=== PATIENT | female | born 1970 | race Caucasian/White ===

== ENCOUNTER → 2020-11-02 | Outpatient (CLI) | payer OTHER ==
--- NOTE | 2020-11-02 11:33 | RAD ---
EXAMINATION: CT HEAD AND MAXILLOFACIAL WO CLINICAL HISTORY: HEADACHES AND SINUS PRESSURE TECHNIQUE: Serial axial images without IV contrast were obtained from the vertex to the foramen magnum. Spiral high resolution axial unenhanced images were obtained through the facial bones with sagittal a nd coronal planar reconstructions. CT Dose Reduction Employed: One or more of the following individualized dose reduction techniques wer e utilized for this examination: 1. Automated exposure control 2. Adjustment of the mA and/or kV ac cording to patient size 3. Use of iterative reconstruction technique. COMPARISON: None FINDINGS: BRAIN: Acute Change: No evidence of an acute contusion or other acute parenchymal process. Hemorrhage: No evidence of acute intracranial hemorrhage. Mass Lesion/Mass Effect: No evidence of intracranial mass or extraaxial fluid collection. No signific ant mass effect. Parenchyma: No significant volume loss. Parenchyma otherwise within normal limits for age. Ventricles: Ventricles within normal limits for age. Skull Base: No evidence of acute calvarial fracture. MAXILLOFACIAL: Soft Tissues: No significant superficial soft tissue swelling. Facial Bones: No evidence of acute facial bone fracture. Orbits: No evidence of acute orbital fracture. Globes are intact. Soft tissue planes of the orbits ma intained. Paranasal Sinuses: Mild hyperpneumatization of the frontal sinus. Minimal secretions in the left ethm oid sinus. Other: Mastoids clear. Left palatine sialolithiasis. IMPRESSION: No evidence of acute intracranial or maxillofacial abnormality. No significant sinus disease. Electronically signed by: Darwin Rausch DO (11/02/2020 11:31 AM) [facility]
== END ==
LOC: CT 10:45
PROVIDERS: ATTEND Family Medicine Sports Medicine
DX: R51.9 Headache, unspecified (principal); K11.5 Sialolithiasis
CPT/HCPCS: 70450; 70486